=== PATIENT | female | born 1930 | race Two or more races ===

== ENCOUNTER → 2018-03-09 | Outpatient (CLI) | payer MEDICARE, OTHER | END | disposition home or self-care (01) | LOC: HKI 14:57 | DX: M17.11 Unilateral primary osteoarthritis, right knee (principal); I10 Essential (primary) hypertension; E11.9 Type 2 diabetes mellitus without complications | CPT/HCPCS: 73564; 73564-50 ==

== ENCOUNTER 2018-07-16 09:53 | Inpatient (IN) | payer MEDICARE, OTHER ==
[2018-07-16 10:16] LABS: ADD MAN DIFF? NO
[2018-07-16] MEDS: FUROSEMIDE 40 MG INJ IV (10:22)
[2018-07-16] MEDS: ASPIRIN 81 MG TAB PO (10:22)
[2018-07-16 10:23] LABS: BASOPHIL # 0.1 10^3/ul (0.0-0.1); BASOPHILS % 1.2 % (0.0-2.0); EOSINOPHILS # 0.2 10^3/ul (0.0-0.5); EOSINOPHILS % 2.6 % (0.0-7.0); HEMATOCRIT 38.6 % (37.0-47.0); HEMOGLOBIN 12.7 g/dl (12.0-16.0); LYMPHOCYTES # 1.6 10^3/ul (0.8-2.9); LYMPHOCYTES % 28.5 % (15.0-51.0); MEAN CORPUSCULAR HGB CONC 32.9 g/dl (32.0-37.0); MEAN PLATELET VOLUME 10.3 fl (7.4-10.4); MONOCYTE # 0.5 10^3/ul (0.3-0.9); MONOCYTES % 8.7 % (0.0-11.0); NEUTROPHIL # 3.4 10^3/ul (1.6-7.5); NEUTROPHILS % 58.8 % (39.0-77.0); PLATELET COUNT 265 10^3/UL (140-415); RED BLOOD COUNT 4.24 10^6/ul (4.20-5.40); RED CELL DISTRIBUTION WIDTH 12.6 % (11.5-14.5)
[2018-07-16 10:23] LABS: WHITE BLOOD COUNT 5.8 10^3/ul (4.8-10.8)
[2018-07-16] MEDS: NITROGLYCERIN 2% 1 GM OINT PKT TD (10:23)
[2018-07-16] MEDS ORDERED: NITROGLYCERIN (SL) 0.4 MG TAB SL ×2 (10:30→14:00)
[2018-07-16 10:54] LABS: TROPONIN-I < 0.012 ng/ml (0.000-0.120)
[2018-07-16 10:56] LABS: ANION GAP 8 (5-13); BLOOD UREA NITROGEN 23 mg/dl (7-20); CALCIUM 9.7 mg/dl (8.4-10.2); CARBON DIOXIDE 25 mmol/L (21-31); CHLORIDE 105 mmol/L (97-110); CREATININE 1.05 mg/dl (0.44-1.00); GLUCOSE 172 mg/dl (70-220); POTASSIUM 4.7 mmol/L (3.5-5.1); SODIUM 138 mmol/L (135-144)
[2018-07-16 11:03] LABS: ALANINE AMINOTRANSFERASE 21 IU/L (13-69); ALBUMIN 4.1 g/dl (3.3-4.9); ALKALINE PHOSPHATASE 87 IU/L (42-121); ASPARTATE AMINO TRANSFERASE 29 IU/L (15-46); BILIRUBIN,INDIRECT 0.3 mg/dl (0-1.1); BILIRUBIN,TOTAL 0.3 mg/dl (0.2-1.3); LIPASE 210 U/L (23-300); TOTAL PROTEIN 7.3 g/dl (6.1-8.1)
[2018-07-16] MEDS ORDERED: ONDANSETRON 4 MG INJ IV ×2 (12:00→14:00)
[2018-07-16] MEDS ORDERED: ACETAMINOPHEN 325 MG TAB PO ×2 (12:00→14:00)
[2018-07-16 13:50] LABS: B-TYPE NATRIURETIC PEPTIDE 2180 PG/ML (0-450)
[2018-07-16] MEDS ORDERED: DOCUSATE SODIUM 100 MG CAP PO (14:00)
[2018-07-16] MEDS ORDERED: morphine 2 MG INJ IV (14:00)
[2018-07-16] MEDS ORDERED: NACL 0.9% 3 ML SYG IV (14:00)
[2018-07-16 15:59] LABS: CREATINE KINASE 84 IU/L (23-200)
[2018-07-16 16:12] LABS: CK INDEX 2.5; CK-MB 2.06 ng/ml (0.0-2.4); TROPONIN-I < 0.012 ng/ml (0.000-0.120)
[2018-07-16] MEDS: FAMOTIDINE 20 MG TAB PO (16:48)
[2018-07-16] MEDS: ISOSORBIDE DINITRATE 5 MG TAB PO ×2 (16:48→20:09)
[2018-07-16] MEDS: INSULIN ASPART [NOVOLOG] 3 ML PEN SC ×3 (17:56→20:20)
[2018-07-16] MEDS: RIVAROXABAN 15 MG TABLET PO (17:57)
[2018-07-16] MEDS: ATORVASTATIN 20 MG TAB PO (20:08)
[2018-07-16] MEDS: INSULIN GLARGINE [LANTus] (100 UNITS/ML) SYG SC (20:16)
[2018-07-16] MEDS ORDERED: FAMOTIDINE 20 MG TAB PO (21:00)
[2018-07-17] MEDS: ACCU-CHEK XX ×2 (02:00→23:44)
[2018-07-17 06:08] LABS: ADD MAN DIFF? NO
[2018-07-17 06:10] LABS: WHITE BLOOD COUNT 6.4 10^3/ul (4.8-10.8)
[2018-07-17 06:10] LABS: BASOPHIL # 0.1 10^3/ul (0.0-0.1); BASOPHILS % 0.9 % (0.0-2.0); EOSINOPHILS # 0.2 10^3/ul (0.0-0.5); EOSINOPHILS % 2.8 % (0.0-7.0); HEMATOCRIT 36.1 % (37.0-47.0); LYMPHOCYTES # 1.8 10^3/ul (0.8-2.9); LYMPHOCYTES % 27.9 % (15.0-51.0); MEAN CORPUSCULAR HEMOGLOBIN 30.3 pg (29.0-33.0); MEAN CORPUSCULAR HGB CONC 33.2 g/dl (32.0-37.0); MEAN CORPUSCULAR VOLUME 91.2 fl (82.0-101.0); MEAN PLATELET VOLUME 10.5 fl (7.4-10.4); MONOCYTE # 0.7 10^3/ul (0.3-0.9); MONOCYTES % 11.4 % (0.0-11.0); NEUTROPHIL # 3.7 10^3/ul (1.6-7.5); NEUTROPHILS % 56.8 % (39.0-77.0); PLATELET COUNT 247 10^3/UL (140-415); RED BLOOD COUNT 3.96 10^6/ul (4.20-5.40); RED CELL DISTRIBUTION WIDTH 12.8 % (11.5-14.5)
[2018-07-17 06:31] LABS: HEMOGLOBIN A1C 8.5 % (0-5.9)
[2018-07-17 06:45] LABS: ALANINE AMINOTRANSFERASE 19 IU/L (13-69); ALBUMIN 3.8 g/dl (3.3-4.9); ALBUMIN/GLOBULIN RATIO 1.15; ALKALINE PHOSPHATASE 79 IU/L (42-121); ANION GAP 5 (5-13); ASPARTATE AMINO TRANSFERASE 25 IU/L (15-46); BILIRUBIN,INDIRECT 0.4 mg/dl (0-1.1); BILIRUBIN,TOTAL 0.4 mg/dl (0.2-1.3); BLOOD UREA NITROGEN 27 mg/dl (7-20); CALCIUM 9.3 mg/dl (8.4-10.2); CARBON DIOXIDE 29 mmol/L (21-31); CHLORIDE 102 mmol/L (97-110); CHOL/HDL RATIO 2.6 RATIO; CHOLESTEROL 121 mg/dl (100-200); CREATININE 1.12 mg/dl (0.44-1.00); GLUCOSE 130 mg/dl (70-220); HDL CHOLESTEROL 46 mg/dl (33-92); LDL CHOLESTEROL,CALCULATED 59 mg/dl; MAGNESIUM 1.6 mg/dl (1.7-2.5); PHOSPHORUS 4.6 mg/dl (2.5-4.9); POTASSIUM 4.1 mmol/L (3.5-5.1); SODIUM 136 mmol/L (135-144); TOTAL PROTEIN 7.1 g/dl (6.1-8.1); TRIGLYCERIDES 81 mg/dl (0-149)
[2018-07-17] MEDS: INSULIN ASPART [NOVOLOG] 3 ML PEN SC ×7 (07:54→20:21)
[2018-07-17] MEDS: ISOSORBIDE DINITRATE 5 MG TAB PO ×2 (08:05→12:49)
[2018-07-17] MEDS: RIVAROXABAN 15 MG TABLET PO ×2 (08:05→20:10)
[2018-07-17] MEDS: ASPIRIN (EC) 81 MG TAB PO (08:05)
[2018-07-17] MEDS: FAMOTIDINE 20 MG TAB PO (08:06)
[2018-07-17] MEDS: METOPROLOL (XL) 25 MG TAB PO (08:06)
[2018-07-17] MEDS: LOSARTAN 50 MG TAB PO (08:07)
[2018-07-17] MEDS: FUROSEMIDE 20 MG INJ IV ×2 (08:14→18:03)
[2018-07-17] MEDS ORDERED: FUROSEMIDE 20 MG TAB PO (09:00)
[2018-07-17] MEDS ORDERED: ENOXAPARIN 40 MG/0.4 ML SYG SC (09:00)
[2018-07-17] MEDS ORDERED: FUROSEMIDE 20 MG INJ IV (09:00)
[2018-07-17] MEDS ORDERED: METOPROLOL (XL) 25 MG TAB PO (09:00)
[2018-07-17] MEDS ORDERED: GLUCOSE GEL 15 GRAM TUBE PO ×2 (10:00)
[2018-07-17] MEDS ORDERED: GLUCAGON 1 MG INJ IM (10:00)
[2018-07-17] MEDS ORDERED: DEXTROSE 50% 50 ML SYRINGE IV ×2 (10:00)
[2018-07-17] MEDS ORDERED: GLUCOSE GEL 15 GRAM TUBE BUCCAL (10:00)
[2018-07-17] MEDS: CHOLECALCIFEROL 2,000 UNIT CAP PO (11:52)
[2018-07-17] MEDS: SILDENAFIL 20 MG TAB PO ×2 (12:49→20:10)
[2018-07-17] MEDS: INSULIN GLARGINE [LANTus] (100 UNITS/ML) SYG SC (20:00)
[2018-07-17] MEDS: ATORVASTATIN 20 MG TAB PO (20:10)
[2018-07-18] MEDS: FUROSEMIDE 20 MG INJ IV (05:32)
[2018-07-18 06:19] LABS: ADD MAN DIFF? NO
[2018-07-18 06:35] LABS: WHITE BLOOD COUNT 5.1 10^3/ul (4.8-10.8)
[2018-07-18 06:35] LABS: BASOPHIL # 0.1 10^3/ul (0.0-0.1); EOSINOPHILS # 0.2 10^3/ul (0.0-0.5); EOSINOPHILS % 3.3 % (0.0-7.0); HEMATOCRIT 35.5 % (37.0-47.0); HEMOGLOBIN 11.9 g/dl (12.0-16.0); LYMPHOCYTES % 38.2 % (15.0-51.0); MEAN CORPUSCULAR HEMOGLOBIN 30.5 pg (29.0-33.0); MEAN CORPUSCULAR HGB CONC 33.5 g/dl (32.0-37.0); MEAN PLATELET VOLUME 10.6 fl (7.4-10.4); MONOCYTE # 0.7 10^3/ul (0.3-0.9); NEUTROPHIL # 2.2 10^3/ul (1.6-7.5); NEUTROPHILS % 43.5 % (39.0-77.0); PLATELET COUNT 240 10^3/UL (140-415); RED CELL DISTRIBUTION WIDTH 12.9 % (11.5-14.5)
[2018-07-18 07:03] LABS: B-TYPE NATRIURETIC PEPTIDE 968 PG/ML (0-450)
[2018-07-18 07:10] LABS: ALANINE AMINOTRANSFERASE 19 IU/L (13-69); ALBUMIN 3.6 g/dl (3.3-4.9); ALBUMIN/GLOBULIN RATIO 1.16; ALKALINE PHOSPHATASE 80 IU/L (42-121); ANION GAP 9 (5-13); ASPARTATE AMINO TRANSFERASE 23 IU/L (15-46); BILIRUBIN,INDIRECT 0.3 mg/dl (0-1.1); BILIRUBIN,TOTAL 0.3 mg/dl (0.2-1.3); BLOOD UREA NITROGEN 37 mg/dl (7-20); CALCIUM 9.4 mg/dl (8.4-10.2); CARBON DIOXIDE 29 mmol/L (21-31); CHLORIDE 98 mmol/L (97-110); CREATININE 1.22 mg/dl (0.44-1.00); GLUCOSE 132 mg/dl (70-220); POTASSIUM 4.1 mmol/L (3.5-5.1); SODIUM 136 mmol/L (135-144); TOTAL PROTEIN 6.7 g/dl (6.1-8.1)
[2018-07-18 07:29] LABS: MAGNESIUM 1.9 mg/dl (1.7-2.5)
[2018-07-18] MEDS: INSULIN ASPART [NOVOLOG] 3 ML PEN SC ×5 (07:52→21:13)
[2018-07-18] MEDS: RIVAROXABAN 15 MG TABLET PO ×2 (08:17→20:51)
[2018-07-18] MEDS: ASPIRIN (EC) 81 MG TAB PO (08:17)
[2018-07-18] MEDS: METOPROLOL (XL) 25 MG TAB PO (08:17)
[2018-07-18] MEDS: CHOLECALCIFEROL 2,000 UNIT CAP PO (08:17)
[2018-07-18] MEDS: FAMOTIDINE 20 MG TAB PO (08:17)
[2018-07-18] MEDS: SILDENAFIL 20 MG TAB PO ×3 (08:19→20:51)
[2018-07-18] MEDS: REPAGLINIDE 1 MG TAB PO ×2 (12:08→17:27)
[2018-07-18] MEDS: ATORVASTATIN 20 MG TAB PO (20:51)
[2018-07-18] MEDS: INSULIN GLARGINE [LANTus] (100 UNITS/ML) SYG SC (21:13)
[2018-07-19] MEDS: hydrALAzine 20 MG INJ IV (00:13)
[2018-07-19] MEDS: LORAZEPAM 2 MG INJ IV (00:26)
[2018-07-19 01:46] LABS: TROPONIN-I < 0.012 ng/ml (0.000-0.120)
[2018-07-19] MEDS: ACCU-CHEK XX (02:00)
[2018-07-19 05:46] LABS: ANION GAP 6 (5-13); BLOOD UREA NITROGEN 39 mg/dl (7-20); CALCIUM 9.2 mg/dl (8.4-10.2); CARBON DIOXIDE 28 mmol/L (21-31); CHLORIDE 103 mmol/L (97-110); CREATININE 1.07 mg/dl (0.44-1.00); GLUCOSE 142 mg/dl (70-220); SODIUM 137 mmol/L (135-144)
[2018-07-19] MEDS: INSULIN ASPART [NOVOLOG] 3 ML PEN SC ×2 (08:00→12:17)
[2018-07-19] MEDS: ASPIRIN (EC) 81 MG TAB PO (08:22)
[2018-07-19] MEDS: CHOLECALCIFEROL 2,000 UNIT CAP PO (08:22)
[2018-07-19] MEDS: REPAGLINIDE 1 MG TAB PO ×2 (08:22→12:12)
[2018-07-19] MEDS: FAMOTIDINE 20 MG TAB PO (08:23)
[2018-07-19] MEDS: METOPROLOL (XL) 25 MG TAB PO (08:23)
[2018-07-19] MEDS: SILDENAFIL 20 MG TAB PO ×2 (08:25→13:05)
[2018-07-19] MEDS: RIVAROXABAN 15 MG TABLET PO (08:32)
== END 2018-07-19 14:06 | disposition home or self-care (01) | DRG 291 ==
LOC: E/R 09:53 → 6WM 11:35
DX: I13.0 Hypertensive heart and chronic kidney disease with heart failure and stage 1 through stage 4 chronic kidney disease, or unspecified chronic kidney disease (principal); I50.33 Acute on chronic diastolic (congestive) heart failure; N17.9 Acute kidney failure, unspecified; N18.2 Chronic kidney disease, stage 2 (mild); I27.20 Pulmonary hypertension, unspecified; E55.9 Vitamin D deficiency, unspecified; E78.2 Mixed hyperlipidemia; E11.69 Type 2 diabetes mellitus with other specified complication; I25.10 Atherosclerotic heart disease of native coronary artery without angina pectoris; I70.1 Atherosclerosis of renal artery; E11.51 Type 2 diabetes mellitus with diabetic peripheral angiopathy without gangrene; Z79.4 Long term (current) use of insulin; E66.9 Obesity, unspecified; Z68.29 Body mass index [BMI] 29.0-29.9, adult; Z95.5 Presence of coronary angioplasty implant and graft; I48.2 Chronic atrial fibrillation; Z79.01 Long term (current) use of anticoagulants; G62.9 Polyneuropathy, unspecified
CPT/HCPCS: 36415; 70450; 71045; 80048; 80053; 80061; 80076; 82550; 82553; 82607; 82652; 82962; 83036; 83690; 83735; 83880; 84100; 84443; 84484; 85025; 93005; 93306; 93880; 96374; 99285-25; G0378